=== PATIENT | female | born 1990 | race Two or more races ===

== ENCOUNTER 2022-10-22 07:21 | Emergency (ER) | payer MEDICAID, OTHER ==
[~2022-10-22] VITALS: Ht 157.5 cm; Wt 105.8 kg
[2022-10-22 07:43] VITALS: BP 142/90; PULSE 98; RESP 18; TEMP 97.5; O2SAT 98
[2022-10-22] MEDS ORDERED: methylPREDNISolone SOD SUCC 40 MG/ML VL IM ONE (08:00)
[2022-10-22] MEDS ORDERED: cefTRIAXone SOD 1,000 MG VL IM ONE (08:00)
[2022-10-22] MEDS ORDERED: CLIN300C70 PO (08:32)
[2022-10-22] MEDS ORDERED: LIDO2SOL26 MT (08:32)
== END 2022-10-22 08:36 | disposition home or self-care (01) ==
LOC: ER 07:21
DX: J03.90 Acute tonsillitis, unspecified (principal); F17.210 Nicotine dependence, cigarettes, uncomplicated
CPT/HCPCS: 96372; 99284; J0696; J2920